=== PATIENT | female | born 1995 | race Caucasian/White ===

== ENCOUNTER 2016-09-04 14:53 | Emergency (ER) | payer OTHER ==
[2016-09-04] MEDS ORDERED: Acetaminophen TAB* 325 MG PO ONE ×2 (16:35→17:38)
[2016-09-04] MEDS ORDERED: Ibuprofen TAB* 400 MG PO ONE (17:30)
--- NOTE | 2016-09-04 17:42 | UC ---
HPI Febrile Illness - HPI Summary HPI Summary: felt achey yesterday, then last night awoke with high fever, shaking chills, body aches. Same symptoms continue. No cough. No ST. Headache, general malaise. 4 others in her [employer] ill with similar symptoms - History of Current Complaint Chief Complaint: UCRespiratory Time Seen by Provider: 09/04/16 17:28 Hx Obtained From: Patient Onset/Duration: Started Days Ago - 1 Timing: Constant Initial Severity: Mild Current Severity: Moderate Aggravating Factors: Nothing Associated Signs and Symptoms: Chills, Headache, Joint Pain, Myalgia, Weakness - Risk Factors Pseudomonas Risk Factors: Negative Serious Bacterial Infection Risk Factors: Negative - Allergy/Home Medications Allergies/Adverse Reactions: Allergies Allergy/AdvReac Type Severity Reaction Status Date / Time Penicillins Allergy Intermediate Hives Verified 09/04/16 16:31 Home Medications: Home Medications Ibuprofen TAB* [Advil TAB*] 400 mg PO Q6H PRN 09/04/16 [History Confirmed ] PMH/Surg Hx/FS Hx/Imm Hx Previously Healthy: Yes - Immunization History Date of Influenza Vaccine: no flu shot Infectious Disease History: No Infectious Disease History: Denies: Traveled Outside the [place] in Last 30 Days - Social History Alcohol Use: Weekly Substance Use Type: Reports: None Smoking Status (MU): Never Smoked Tobacco Review of Systems Constitutional: Negative Skin: Negative Eyes: Negative ENT: Negative Respiratory: Negative Cardiovascular: Negative Gastrointestinal: Other - mild nausea Genitourinary: Negative Motor: Negative Neurovascular: Negative Musculoskeletal: Myalgia Neurological: Headache Psychological: Negative All Other Systems Reviewed And Are Negative: Yes Physical Exam Triage Information Reviewed: Yes Appearance: Well-Appearing, No Pain Distress, Well-Nourished Vital Signs: Initial Vital Signs Temp 103.6 F 09/04/16 16:26 Pulse 105 09/04/16 16:26 Resp 16 09/04/16 16:26 BP 128/75 09/04/16 16:26 Pulse Ox 99 09/04/16 16:26 Vital Signs Reviewed: Yes Eye Exam: Normal Eyes: Positive: Conjunctiva Clear ENT: Positive: Hearing grossly normal, Pharynx normal, Nasal drainage. Negative : Tonsillar swelling, Tonsillar exudate, Trismus, Muffled/hoarse voice Neck exam: Normal Neck: Positive: Supple, Nontender, No Lymphadenopathy Respiratory Exam: Normal Respiratory: Positive: Lungs clear, Normal breath sounds, No respiratory distress, No accessory muscle use Cardiovascular Exam: Normal Musculoskeletal Exam: Normal Neurological Exam: Normal Neurological: Positive: Alert, Muscle Tone Normal Psychological Exam: Normal Skin Exam: Normal Course/Dx - Febrile Illness Differential Diagnoses: Meningitis, Pneumonia, Viremia - Diagnoses Clinic Provider Diagnoses: influenza Discharge - Discharge Plan Condition: Stable Disposition: HOME Prescriptions: Oseltamivir CAP* [Tamiflu CAP*] 75 mg PO BID #10 cap Patient Education Materials: Influenza (ED) Forms: *School Release Referrals: Non Staff,Doctor [Primary Care Provider] -
== END 2016-09-04 17:46 | disposition home or self-care (01) ==
LOC: UCCORT 14:53
DX: J11.1 Influenza due to unidentified influenza virus with other respiratory manifestations (principal); Z88.0 Allergy status to penicillin
CPT/HCPCS: 99202; A9270-GY; G0463